=== PATIENT | female | born 1960 | race Caucasian/White ===

== ENCOUNTER 2022-04-29 15:44 | Emergency (ER) | payer MEDICAID, OTHER ==
[~2022-04-29] VITALS: Ht 157.5 cm; Wt 72.6 kg
--- NOTE | 2022-04-29 15:45 | NUR ---
BIB family w/ c/o left leg pain and shoulder pain radiates to her arms s/p fall, -ko. To ER bed 9.
[2022-04-29] MEDS ORDERED: ACETAMINOPHEN ES 500 MG TABLET PO ONE (16:30)
[2022-04-29] MEDS ORDERED: IBUPROFEN 600 MG TABLET PO ONE (16:30)
[2022-04-29] MEDS ORDERED: IBUPROFEN 600 MG TABLET ONE (16:46)
[2022-04-29] MEDS ORDERED: ACETAMINOPHEN ES 500 MG TABLET ONE (16:46)
--- NOTE | 2022-04-29 16:47 | NUR ---
PT BACK FROM RADIOLOGY
[2022-04-29] MEDS ORDERED: METH-647 PO (17:32)
[2022-04-29] MEDS ORDERED: IBUP-1957 PO (17:32)
[2022-04-29 18:08] VITALS: BP 134/88
== END 2022-04-29 18:10 | disposition home or self-care (01) ==
LOC: ER 15:47
DX: S86.912A Strain of unspecified muscle(s) and tendon(s) at lower leg level, left leg, initial encounter (principal); S16.1XXA Strain of muscle, fascia and tendon at neck level, initial encounter; I10 Essential (primary) hypertension; E78.00 Pure hypercholesterolemia, unspecified; W01.0XXA Fall on same level from slipping, tripping and stumbling without subsequent striking against object, initial encounter; Y93.89 Activity, other specified; Y92.89 Other specified places as the place of occurrence of the external cause; Y99.8 Other external cause status
CPT/HCPCS: 72125-TC; 73564-TC